=== PATIENT | female | born 1990 | race Caucasian/White ===

== ENCOUNTER 2024-11-08 12:02 | Emergency (ER) | payer OTHER ==
[~2024-11-08] VITALS: Ht 165.1 cm; Wt 55.0 kg
[2024-11-08 12:04] VITALS: TEMP 36.8; O2SAT 97
[2024-11-08] MEDS ORDERED: PANTOPRAZOLE SODIUM 40 MG/VIAL IV ONE (12:30)
[2024-11-08] MEDS ORDERED: ONDANSETRON HCL 4MG/2ML INJ IV ONE (12:30)
[2024-11-08] MEDS ORDERED: MORPHINE SULFATE 4 MG/ML INJ (FOR IV/IM USE) IV ONE (12:30)
[2024-11-08] MEDS: SODIUM CHLORIDE 0.9% 1,000 ML IV ONE (12:30)
[2024-11-08 15:44] LABS: BASOPHILS % 0.1 % (0.0-2.0); EOSINOPHILS % 3.0 % (0.0-5.0); HEMATOCRIT. 35.9 % (36.0-48.0); HEMOGLOBIN. 12.1 g/dL (12.0-16.0); LYMPHOCYTES % 29.5 % (20.0-50.0); MEAN PLATELET VOLUME 6.2 fl (7.4-10.4); MONOCYTES % 8.4 % (2.0-8.0); NEUTROPHILS % 59.0 % (40.0-76.0); PLATELET 294 x1000/uL (130-400); RED BLOOD CELL COUNT 3.97 mill/uL (4.2-5.4); RED CELL DISTRIBUTION WIDTH 14.8 % (11.6-14.6)
[2024-11-08 15:59] LABS: HCG SCREEN NEGATIVE
[2024-11-08 16:00] LABS: CREATININE 0.7 mg/dL (0.6-1.0)
[2024-11-08 16:01] LABS: ETHANOL BLOOD < 10 mg/dL (<10); UREA NITROGEN BLOOD 9 mg/dL (9-23)
[2024-11-08 16:02] LABS: ASPARTATE AMINOTRANSFERASE 26 IU/L (<34)
[2024-11-08 16:03] LABS: BILIRUBIN DIRECT 0.1 mg/dL (<=3.0); BILIRUBIN TOTAL 0.4 mg/dL (0.1-1.0); PROTEIN TOTAL 6.9 g/dL (6.0-8.3)
[2024-11-08 16:06] VITALS: BP 102/62; PULSE 102; RESP 16; O2SAT 98
[2024-11-08] MEDS: MORPHINE SULFATE 4 MG/ML INJ (FOR IV/IM USE) IV SCH (17:07)
[2024-11-08] MEDS: PANTOPRAZOLE SODIUM 40 MG/VIAL IV SCH (17:07)
[2024-11-08] MEDS: ONDANSETRON HCL 4MG/2ML INJ IV SCH (17:07)
[2024-11-08] MEDS ORDERED: LACT10SO70 MT (17:41)
[2024-11-08] MEDS ORDERED: DOXY100T2 MT (17:41)
[2024-11-08] MEDS ORDERED: AMOX1TAB16 MT (17:41)
[2024-11-08] MEDS: LACTULOSE 20G/30ML UDC PO ONE (18:08)
[2024-11-08] MEDS: DOXYCYCLINE HYCLATE 100MG CAPSULE PO ONE (18:09)
[2024-11-08] MEDS: NA PHOS,M-B/NA PHOS,DI-BA ENEMA 118ML PR ONE (18:09)
[2024-11-08] MEDS: KETOROLAC 15MG/ML VIAL IV ONE (18:09)
[2024-11-08] MEDS: AMOXICILLIN/POTASSIUM CLAVULANATE 875/125MG TAB PO ONE (18:09)
== END 2024-11-08 18:22 | disposition home or self-care (01) ==
LOC: ER 14:18
DX: R10.9 Unspecified abdominal pain (principal); F17.210 Nicotine dependence, cigarettes, uncomplicated; Q63.1 Lobulated, fused and horseshoe kidney
CPT/HCPCS: 80076; 80048; 80320; 84703; 83690; 85025; 36415; 74176; 96361; 96365; 96375; 99285; 99406; J1885; J2405; J2470; J2270; J7030; G0480

== ENCOUNTER 2024-11-20 18:09 | Emergency (ER) | payer OTHER ==
[~2024-11-20] VITALS: Ht 157.5 cm; Wt 60.0 kg
[~2024-11-20 18:09] MED LIST: AMOX1TAB16 MT; DOXY100T2 MT; LACT10SO70 MT
[2024-11-20 18:16] VITALS: O2SAT 99
[2024-11-20 18:19] VITALS: BP 133/70; PULSE 119; RESP 20; TEMP 36.9; O2SAT 99
== END 2024-11-20 20:24 | disposition left against medical advice (07) ==
LOC: ER 18:09
DX: R05.9 Cough, unspecified (principal); R09.81 Nasal congestion
CPT/HCPCS: 99282